=== PATIENT | male | born 1940 | race Caucasian/White ===

== ENCOUNTER 2018-01-31 17:19 | Inpatient (IN) ==
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
[2018-01-31 18:19] LABS: Baso % (Auto) 0.2 % (0.0-2.0); Hematocrit 42.6 % (39.0-51.0); Hemoglobin 14.4 gm/dL (13.0-17.0); Lymph # (Auto) 1.1 th/mm3 (1.0-4.8); Lymph % (Auto) 6.9 % (9.0-44.0); Mean Corpuscular HGB Conc 33.9 % (32.0-36.0); Mean Corpuscular Hemoglobin 32.2 pg (27.0-34.0); Mean Corpuscular Volume 95.1 fL (80.0-100.0); Mean Platelet Volume 7.6 fL (7.0-11.0); Mono # (Auto) 0.9 th/mm3 (0.0-0.9); Mono % (Auto) 5.6 % (0.0-8.0); Neut # (Auto) 13.9 th/mm3 (1.8-7.7); Neut % (Auto) 87.3 % (16.0-70.0); Platelet Count 232 th/mm3 (150-450); Red Blood Count 4.48 mil/mm3 (4.50-5.90); Red Cell Distribution Width 12.7 % (11.6-17.2); White Blood Count 15.9 th/mm3 (4.0-11.0)
[2018-01-31 18:30] LABS: Calcium 8.3 mg/dL (8.5-10.1); Carbon Dioxide 23.9 meq/L (21.0-32.0); Potassium 4.3 meq/L (3.5-5.1)
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
[2018-01-31] MEDS ORDERED: Bisacodyl 10 MG Supp RECTAL PRN (19:37)
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
[2018-01-31] MEDS: Sod Chloride 0.9% Inj 1,000 ML IV.CONT SCH (21:31)
[2018-01-31] MEDS: Senna/Docusate Sodium 8.6/50 MG Tablet PO SCH (21:32)
[2018-01-31] MEDS: Morphine Inj 4 MG/ML Vial IV.PUSH PRN (21:32)
[2018-01-31] MEDS: Methocarbamol 500 MG Tablet PO SCH (21:32)
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
[2018-02-01] MEDS: Morphine Inj 4 MG/ML Vial IV.PUSH PRN (01:42)
[2018-02-01] MEDS: Chlorhexidine Gluconate 2% 1 Pack (2 Cloths) TOPICAL SCH (03:28)
[2018-02-01] MEDS ORDERED: Chlorhexidine Gluconate 2% 1 Pack (2 Cloths) TOPICAL PRN (04:00)
[2018-02-01 04:17] LABS: Baso % (Auto) 0.3 % (0.0-2.0); Eos % (Auto) 0.2 % (0.0-4.0); Hematocrit 42.8 % (39.0-51.0); Hemoglobin 14.3 gm/dL (13.0-17.0); Lymph # (Auto) 1.4 th/mm3 (1.0-4.8); Lymph % (Auto) 10.9 % (9.0-44.0); Mean Corpuscular HGB Conc 33.4 % (32.0-36.0); Mean Corpuscular Hemoglobin 31.6 pg (27.0-34.0); Mean Corpuscular Volume 94.7 fL (80.0-100.0); Mean Platelet Volume 7.8 fL (7.0-11.0); Mono # (Auto) 1.2 th/mm3 (0.0-0.9); Mono % (Auto) 9.2 % (0.0-8.0); Neut # (Auto) 10.4 th/mm3 (1.8-7.7); Neut % (Auto) 79.4 % (16.0-70.0); Platelet Count 225 th/mm3 (150-450); Red Blood Count 4.52 mil/mm3 (4.50-5.90); Red Cell Distribution Width 12.6 % (11.6-17.2); White Blood Count 13.1 th/mm3 (4.0-11.0)
[2018-02-01 04:29] LABS: Calcium 8.3 mg/dL (8.5-10.1); Carbon Dioxide 25.4 meq/L (21.0-32.0)
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
[2018-02-01] MEDS: Methocarbamol 500 MG Tablet PO SCH ×3 (05:25→21:00)
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
[2018-02-01] MEDS: Famotidine 20 MG Tablet PO SCH ×2 (11:24→21:00)
[2018-02-01] MEDS: Senna/Docusate Sodium 8.6/50 MG Tablet PO SCH ×2 (11:24→21:00)
[2018-02-01] MEDS: Sod Chloride 0.9% Inj 1,000 ML IV.CONT SCH ×2 (11:24→20:59)
[2018-02-01] MEDS: Lidocaine 5% Patch T-DERMAL SCH (11:24)
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
[2018-02-01] MEDS ORDERED: hydrALAZINE 10 MG Tablet PO PRN (18:34)
[2018-02-02 06:09] LABS: Baso % (Auto) 0.4 % (0.0-2.0); Eos # (Auto) 0.2 th/mm3 (0.0-0.4); Eos % (Auto) 2.1 % (0.0-4.0); Hematocrit 42.7 % (39.0-51.0); Hemoglobin 14.5 gm/dL (13.0-17.0); Lymph # (Auto) 1.1 th/mm3 (1.0-4.8); Lymph % (Auto) 11.5 % (9.0-44.0); Mean Corpuscular Hemoglobin 32.6 pg (27.0-34.0); Mean Corpuscular Volume 95.8 fL (80.0-100.0); Mean Platelet Volume 7.6 fL (7.0-11.0); Mono % (Auto) 10.2 % (0.0-8.0); Neut # (Auto) 7.5 th/mm3 (1.8-7.7); Neut % (Auto) 75.8 % (16.0-70.0); Platelet Count 191 th/mm3 (150-450); Red Blood Count 4.46 mil/mm3 (4.50-5.90); Red Cell Distribution Width 12.4 % (11.6-17.2); White Blood Count 9.9 th/mm3 (4.0-11.0)
[2018-02-02 06:16] LABS: Alanine Aminotransferase 50 U/L (12-78); Albumin 3.1 g/dL (3.4-5.0); Anion Gap 8 meq/L (5-15); Aspartate Aminotransferase 43 U/L (15-37); Blood Urea Nitrogen 11 mg/dL (7-18); Calcium 7.7 mg/dL (8.5-10.1); Carbon Dioxide 23.3 meq/L (21.0-32.0); Chloride 107 meq/L (98-107); Glomerular Filtration Rate Greater Than 89 mL/min (>89); Glucose,Random 106 mg/dL (74-106); Potassium 4.3 meq/L (3.5-5.1); Sodium 138 meq/L (136-145)
[2018-02-02 06:17] LABS: Alkaline Phosphatase 63 U/L (45-117); Total Protein 6.5 g/dL (6.4-8.2)
[2018-02-02] MEDS: Chlorhexidine Gluconate 2% 1 Pack (2 Cloths) TOPICAL SCH (06:29)
[2018-02-02] MEDS: Morphine Inj 4 MG/ML Vial IV.PUSH PRN (06:33)
[2018-02-02] MEDS: Methocarbamol 500 MG Tablet PO SCH ×2 (06:33→13:51)
[2018-02-02] MEDS: Senna/Docusate Sodium 8.6/50 MG Tablet PO SCH (08:14)
[2018-02-02] MEDS: Famotidine 20 MG Tablet PO SCH (08:15)
[2018-02-02] MEDS: Sod Chloride 0.9% Inj 1,000 ML IV.CONT SCH (08:16)
[2018-02-02] MEDS: Lidocaine 5% Patch T-DERMAL SCH (08:17)
--- NOTE | 2018-02-02 09:17 | P.PNOP ---
Subjective Interval history: Pain controlled Physical Exam Vital signs: Vital Signs 02/01/18 20:00 02/01/18 21:36 02/02/18 00:00 Temperature 98.2 F Pulse Rate 68 73 Respiratory Rate 18 17 Blood Pressure 170/88 H Pulse Oximetry 95 02/02/18 00:12 02/02/18 01:00 02/02/18 04:00 Temperature Pulse Rate 110 H Respiratory Rate 14 17 Blood Pressure 122/60 Pulse Oximetry 98 97 Intake & Output 02/01/18 02/02/18 02/02/18 18:59 06:59 18:59 Intake Total 1670 / 1670 1000 / 1000 1000 / 1000 Output Total 650 / 650 Balance 1020 / 1020 1000 / 1000 1000 / 1000 Intake: IV 950 / 950 1000 / 1000 1000 / 1000 NS Inj 1,000 ML @ 84 mls/hr IV. 950 / 950 1000 / 1000 1000 / 1000 CONT .[id number] [facility] Rx#:[id number] Oral 720 / 720 Output: Urine 650 / 650 Other: # Bowel Movements 0 - Constitutional no acute distress - Routine HEENT Exam Head: Present: normocephalic - Routine Neck Exam Comments: Cervical collar in place - Detailed Upper Extremity Exam Comments: Mild tenderness to palpation right distal clavicle at level of fracture seen on CT scan from outside facility Moderate tenderness to palpation right posterior scapular region. Right elbow, right wrist. Nontender. Left upper extremity nontender. Neurologic exam upper extremity intact. Vascular examination of Bilateral upper extremities intact. Integumentary examination intact except abrasion on top of the right shoulder Results - Labs CBC & Chem 7: 02/02/18 05:11 02/02/18 05:11 Laboratory Results - last 24 hr 02/02/18 02/02/18 05:11 05:11 WBC 9.9 RBC 4.46 L Hgb 14.5 Hct 42.7 MCV 95.8 MCH 32.6 MCHC 34.0 RDW 12.4 Plt Count 191 MPV 7.6 Neut % (Auto) 75.8 H Lymph % (Auto) 11.5 [place] % (Auto) 10.2 H Eos % (Auto) 2.1 Baso % (Auto) 0.4 Neut # (Auto) 7.5 Lymph # (Auto) 1.1 [place] # (Auto) 1.0 H Eos # (Auto) 0.2 Baso # (Auto) 0.0 WBC Differential . Differential Comment Auto diff final Sodium 138 Potassium 4.3 Chloride 107 Carbon Dioxide 23.3 Anion Gap 8 BUN 11 Creatinine 0.71 Estimated GFR Greater than 89 Random Glucose 106 Calcium 7.7 L Total Bilirubin 1.0 AST 43 H ALT 50 Alkaline Phosphatase 63 Total Protein 6.5 Albumin 3.1 L - Imaging Impressions Lumbar Spine CT 02/01/18 00:00 CONCLUSION: 1. No acute bony fracture. 2. Mild spinal canal stenosis at L3-4. 3. Mild to moderate spinal canal stenosis L4-5. 4. Bilateral facet arthritis at multiple levels. 5. Tiny nonobstructing stone lower pole left kidney. Thoracic Spine CT 02/01/18 00:00 CONCLUSION: 1. Burst type fracture of the T5 vertebral body extending through both endplates. 2. No significant retropulsed fragments. 3. Bony central canal is patent. Assessment and Plan - Problem List (1) Closed right scapular fracture Code(s): S42.101A - Fracture of unspecified part of scapula, right shoulder, initial encounter for closed fracture Status: Acute Qualifiers: Encounter type: initial encounter Scapula location: body Fracture alignment: displaced Qualified Code(s): S42.111A - Displaced fracture of body of scapula, right shoulder, initial encounter for closed fracture Plan: His condition of right shoulder contusion with scapula fracture and distal clavicle fracture as well as underlying nondisplaced rib fractures and small pneumothorax was discussed and the options of treatment were discussed. At the time that I spoke with him I was not aware that there is a T5 compression fracture. There is no obvious neurologic involvement that I can see on the CT scan from [facility]. He has a C2 fracture that will be managed by neurosurgery. Treatment plan for the right shoulder blade is nonoperative management. He is indicated continue with current sling. The patient asked appropriate questions. All of his questions were answered. I will sign off at this time. I did provide a card to the patient. He should follow-up with either myself or my nurse practitioner Mark Cabrera in 1 month. A mid level provider in my office, nurse practitioner or PA, may see this patient on a follow up basis and continue to implement the plan including: starting or adjusting medications, injections of muscle, tendons, bursa or joints, cast application, orthotic or brace application, physical therapy, further radiographic studies including X-ray, MRI, CT, ultrasound or bone scan , vascular studies, neurological studies, or other specialist consultations, and proceeding with surgical management as appropriate. (2) Closed fracture of distal clavicle Code(s): S42.033A - Displaced fracture of lateral end of unspecified clavicle, initial encounter for closed fracture Status: Acute Qualifiers: Encounter type: initial encounter Fracture alignment: nondisplaced Laterality: right Qualified Code(s): S42.034A - Nondisplaced fracture of lateral end of right clavicle, initial encounter for closed fracture (3) Closed fracture of T5 vertebra Code(s): S22.059A - Unspecified fracture of T5-T6 vertebra, initial encounter for closed fracture Status: Acute Qualifiers: Encounter type: initial encounter Fracture morphology: burst- stable Qualified Code(s): S22.051A - Stable burst fracture of T5-T6 vertebra, initial encounter for closed fracture
--- NOTE | 2018-02-02 09:55 | P.DCO ---
- Physical Therapy Order: Evaluate and treat, Improve ambulation, Strength and gait training - Home Health Nursing Order: Nursing assessment with vital signs - Certification I have seen patient Mehran Torres on 02/02/18. My clinical findings support the need for the requested home health care services because: Limited mobility due to disease progression, Deconditioned with increased weakness I certify that my clinical findings support that this patient is homebound because: Unsteady gait/balance
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
[2018-02-06 17:52] VITALS: O2SAT 94
[2018-02-06 18:04] VITALS: BP 135/88; PULSE 70; RESP 16
[2018-02-06 18:18] VITALS: TEMP 98.1
== END 2018-02-02 16:19 ==
LOC: NEPE 17:19 → NEDA 17:51 → N03 22:51
PROVIDERS: ADMIT Surgery Trauma Surgery; ATTEND Surgery Trauma Surgery